=== PATIENT | female | born 2000 | race Caucasian/White ===

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

== ENCOUNTER → 2021-01-17 | Outpatient (CLI) | payer BC ==
[~2021-01-17] MED LIST changes: +NAPR220C2 PO; +TRILOSPRINTEC PO
== END | disposition home or self-care (01) ==
LOC: STAR 09:05
PROVIDERS: ATTEND Otolaryngology
DX: Z20.822 Contact with and (suspected) exposure to COVID-19 (principal); J32.9 Chronic sinusitis, unspecified; J34.2 Deviated nasal septum; J34.3 Hypertrophy of nasal turbinates
CPT/HCPCS: U0003; U0005

== ENCOUNTER 2021-01-22 06:22 | Day surgery (SDC) | payer BC ==
[2021-01-17 09:58] VITALS: BP 116/79
[~2021-01-22] VITALS: Ht 167.6 cm; Wt 65.0 kg
[2021-01-22 06:41] VITALS: BP 123/79
[2021-01-22] MEDS ORDERED: CHLORHEXIDINE 15 ML UDC ONE (06:46)
[2021-01-22] MEDS ORDERED: EPINEPHRINE 1 MG/ML, 1ML ONE (06:48)
[2021-01-22] MEDS ORDERED: MUPIROCIN OINT 2%, 22GM ONE (06:48)
[2021-01-22] MEDS ORDERED: LIDOCAINE/PF 1%, 30ML ONE (06:48)
[2021-01-22] MEDS ORDERED: OXYMETAZOLINE NASAL SPRAY 0.05%,30ML ONE (06:48)
[2021-01-22] MEDS ORDERED: MIDAZOLAM 1 MG/ML, 2ML ONE (06:59)
[2021-01-22] MEDS ORDERED: FENTANYL PF 100 MCG/2ML ONE ×2 (06:59→09:05)
[2021-01-22] MEDS ORDERED: CHLORHEXIDINE 15 ML UDC PO ONE (07:00)
[2021-01-22] MEDS ORDERED: LACTATED RINGERS 1,000 ML IV SCH (07:00)
[2021-01-22 07:01] LABS: HCG UR SG 1.024 (1.003-1.030)
[2021-01-22] MEDS ORDERED: SCOPOLAMINE 1MG PATCH TD ONE (07:21)
[2021-01-22] MEDS ORDERED: ROCURONIUM 10 MG/ML,10ML ONE (07:26)
[2021-01-22] MEDS ORDERED: PROPOFOL 10 MG/ML, 20ML ONE (07:26)
[2021-01-22] MEDS ORDERED: SUCCINYLCHOLINE 20 MG/ML, 10ML ONE (07:26)
[2021-01-22] MEDS ORDERED: DEXAMETHASONE 4 MG/ML, 1ML ONE (07:26)
[2021-01-22] MEDS ORDERED: CEFAZOLIN 1,000 MG ONE (07:26)
[2021-01-22] MEDS ORDERED: NEOSTIGMINE 1 MG/ML, 10ML ONE (07:26)
[2021-01-22] MEDS ORDERED: GLYCOPYRROLATE 0.2MG/1ML, 5ML ONE (07:26)
[2021-01-22] MEDS ORDERED: ONDANSETRON 2MG/ML, 2ML ONE (07:26)
[2021-01-22] MEDS ORDERED: ONDANSETRON 2MG/ML, 2ML IVPush PRN (07:30)
[2021-01-22] MEDS ORDERED: ACETAMINOPHEN 325 MG TABLET PO PRN (07:30)
[2021-01-22] MEDS ORDERED: OXYcodone 5 MG/5 ML ORAL.SOL UDC PO PRN (07:30)
[2021-01-22] MEDS ORDERED: MEPERIDINE/PF 25MG/0.5ML IVPush PRN (07:30)
[2021-01-22] MEDS ORDERED: SCOPOLAMINE 1MG PATCH TD SCH (07:30)
[2021-01-22] MEDS ORDERED: HYDROcodone/APAP 7.5-325MG/15ML UDC PO PRN (07:30)
[2021-01-22] MEDS ORDERED: HYDROmorphone 1 MG/ML, 1ML INJ IVPush PRN (07:30)
[2021-01-22] MEDS ORDERED: PROMETHAZINE 25 MG/ML, 1ML IVPush PRN (07:30)
[2021-01-22] MEDS ORDERED: SUGAMMADEX 200 MG/2 ML IVPush ONE (08:43)
[2021-01-22] MEDS ORDERED: MEPERIDINE/PF 25MG/ML,1ML ONE (08:47)
[2021-01-22] MEDS ORDERED: ACETAMINOPHEN 650 MG/20.3 ML UDC ONE (09:05)
[2021-01-22] MEDS ORDERED: OXYcodone 5 MG/5 ML ORAL.SOL UDC ONE (09:06)
[2021-01-22] MEDS: FENTANYL PF 100 MCG/2ML IV PRN ×2 (09:10→09:18)
== END 2021-01-22 10:40 | disposition home or self-care (01) ==
LOC: OUT 06:22
PROVIDERS: ATTEND Otolaryngology
DX: J34.2 Deviated nasal septum (principal); J34.3 Hypertrophy of nasal turbinates; J32.0 Chronic maxillary sinusitis; J32.2 Chronic ethmoidal sinusitis; Z79.899 Other long term (current) drug therapy
CPT/HCPCS: 30140; 30520; 31254; 31256; 81025; 88304; 88311; J0171; J0330; J0690; J1100; J2175; J2250; J2405; J2704; J2710; J3010; J7120